=== PATIENT | female | born 1970 | race Caucasian/White ===

== ENCOUNTER 2016-08-30 09:33 | Observation (INO) | payer BC ==
[2016-08-24 14:52] LABS: HEMATOCRIT 38.2 % (36.0-48.0); HEMOGLOBIN 12.2 g/dL (12.0-16.0)
--- NOTE | ~2016-08-30 | OP ---
Record Of Operation [facility] [address] [place]. [address] NAME: REHAN MOSELEY : 70 STATUS : DIS Jarrett PAT#: [id number] AGE: 45 ADM/REG DATE : 08/30/16 MR#: [id number] REPORT SERV DATE: 08/31/16 DICTATED BY: ENRIQUE FRANCISCO DATE: 08/31/16 REPORT STATUS : Draft TRANSCRIBED BY: MODL DATE: 08/31/16 DATE OF PROCEDURE: 08/30/2016 PREOPERATIVE DIAGNOSES: 1. Left multinodular goiter. 2. Thyroiditis. 3. Dysphagia. POSTOPERATIVE DIAGNOSES: 1. Left multinodular goiter. 2. Thyroiditis. 3. Dysphagia. PROCEDURES: 1. Left completion thyroidectomy. 2. NIM monitoring of superior and recurrent laryngeal nerve. ANESTHESIA: General. COMPLICATIONS: None. COUNTS: All counts were correct following the procedure. ESTIMATED BLOOD LOSS: 25 mL. PREOPERATIVE INFORMED CONSENT: We discussed the risks and benefits of the surgery to include, but not limited to bleeding, infection, possible superior and recurrent laryngeal nerve injury resulting in temporary or permanent deficits. She understands the risks and benefits of the surgery, and consent is on the chart. DESCRIPTION OF PROCEDURE: The patient was brought to the operating suite and placed on the operating table in the supine position. General endotracheal anesthesia was initiated without incident using a NIM monitoring endotracheal tube. The NIM monitoring electrode was placed on the patient. The NIM monitor was calibrated and noted to be functioning properly. Following this, a transverse incision was marked out 2 fingerbreadths above the sternal notch and injected with 1% lidocaine with 1:100,000 epinephrine for hemostasis. Following this, a #15-blade scalpel was used to make an incision down to the underlying subcutaneous tissues. Electrocautery was used to perform sharp dissection down through the platysma layer. The midline fascia was divided using electrocautery. The strap muscles were retracted laterally. Dissecting along the left capsular plane, the middle thyroid vein was dissected out and divided using the harmonic scalpel. The inferior pole vessels were dissected out and dissecting in the tracheoesophageal groove, the recurrent laryngeal nerve was identified and confirmed using the NIMH stimulator and preserved as it was followed up superiorly up to its insertion into the cricothyroid notch. The inferior pole vessels were then divided at the level of the capsule of the thyroid using the harmonic scalpel. The Record Of Operation [facility] [address] [place]. [address] NAME: REHAN MOSELEY : 70 STATUS : DIS Jarrett PAT#: [id number] AGE: 45 ADM/REG DATE : 08/30/16 MR#: [id number] REPORT SERV DATE: 08/31/16 DICTATED BY: ENRIQUE FRANCISCO DATE: 08/31/16 REPORT STATUS : Draft TRANSCRIBED BY: SAVAGE DATE: 08/31/16 superior pole vessels were dissected out and the superior laryngeal nerve was identified and confirmed using the [facility] stimulator and preserved. The superior pole vessels were divided using the harmonic scalpel. The gland was further retracted medially and Bermudez's ligament was divided using the harmonic scalpel, bipolar cautery, and a #15-blade scalpel. The gland was further dissected off the anterior tracheal wall and divided just to the left of midline using the harmonic scalpel. The specimen was inspected and there was no evidence of any subcapsular parathyroid. The left side of the neck was irrigated with sterile saline and suctioned until clear. NIM monitor was used to stimulate the superior and recurrent laryngeal nerves and both were noted to be functioning properly. Following this, the platysmal layer was closed using a running 3-0 Vicryl suture. The skin was closed using a running 4-0 Prolene and subcuticular closure followed with Benzoin, Steri-Strips and Tegaderm dressing. The patient was awakened from anesthesia and taken to the recovery room in stable condition. BRAYAN/SAVAGE Enrique Francisco M.D. / [id number] CC: Adrien Booker M.D.
[~2016-08-30 09:33] MED LIST: ADVAIR250 INH; FLONASE NAS; LOESTRIN 24 PO; M-END PE PO; MOTRIN IB200 MG PO; MUCINEX D PO; P1 PO; PRILOSEC40 MG PO; PROAIR HFA INH; PROTONIX PO; SINGULAIR1 PO; SYN1 PO; XYZAL5 MG OR; ZYRTEC ALLGY10 MG PO
[2016-08-30 12:10] LABS: PTH (INTRAOPERATIVE) 62.8 PG/ML (10.0-65.0); PTH TAT 0 Hrs 25 Mins
[2016-08-30 16:16] LABS: PTH (INTRAOPERATIVE) 44.2 PG/ML (10.0-65.0); PTH TAT 0 Hrs 24 Mins
[2016-08-31] MEDS ORDERED: OS500+D PO (08:20)
[2016-08-31] MEDS ORDERED: NORCO1 TA1 PO (08:20)
[2016-08-31] MEDS ORDERED: DURICEF PO (08:20)
[2016-08-31] MEDS ORDERED: ZOFRAN ODT4 MG PO (08:21)
== END 2016-08-31 10:48 | disposition home or self-care (01) ==
LOC: SDC 09:33 → 4SO 18:35
PROVIDERS: Otolaryngology
PROC: 0GTK0ZZ Resection of Thyroid Gland, Open Approach (ICD-10-PCS; principal; 2016-08-30 11:30)
DX: E06.3 Autoimmune thyroiditis (principal); J45.909 Unspecified asthma, uncomplicated; K21.9 Gastro-esophageal reflux disease without esophagitis; E66.01 Morbid (severe) obesity due to excess calories; Z98.890 Other specified postprocedural states; Z88.2 Allergy status to sulfonamides; Z88.5 Allergy status to narcotic agent; Z68.38 Body mass index [BMI] 38.0-38.9, adult; Z88.1 Allergy status to other antibiotic agents; Z79.899 Other long term (current) drug therapy
CPT/HCPCS: 82310; 82330; 82962; 83970; 84703; 85014; 85018; 88307; 93005; 96374; A9270-GY; G0378; J0690; J2250; J2405; J2550; J2710; J3010